=== PATIENT | female | born 1945 | race African-American/Black ===

== ENCOUNTER 2017-11-06 21:36 | Inpatient (IN) ==
[2017-11-06] MEDS ORDERED: methylPREDNISolone SOD SUC 40 MG/1 ML VIAL IV STA (22:26)
[2017-11-06] MEDS ORDERED: ALBUTEROL/IPRATROPIUM 3 ML NEB RESP TX STA (22:29)
[2017-11-06] MEDS ORDERED: methylPREDNISolone SOD SUC 125 MG/2 ML VIAL ONE (22:49)
[2017-11-06 22:59] LABS: Basophils % 0.5 % (0.0-0.8); Eosinophils # 0.2 10*3/uL (0.0-0.87); Eosinophils % 2.8 % (0.00-10.9); Hematocrit 40.3 VOL% (35.7-47.0); Hemoglobin 12.2 GM/DL (12.0-16.0); Immature Granulocytes % 0.3 %; Immature Granulocytes Absolute 0.02 #; Lymphocytes # 1.6 10*3/uL (1.4-4.0); Lymphocytes % 20.8 % (21.3-54.2); Mean Corpuscular HGB Conc 30.3 GM/DL (32-36); Mean Corpuscular Hemoglobin 29 PG (27-34); Mean Corpuscular Volume 94.4 FL (87-102); Mean Platelet Volume 13.8 FL (9.6-12.0); Monocytes # 0.6 10*3/uL (0.11-0.8); Monocytes % 7.3 % (1.7-12.7); Neutrophils # 5.4 10*3/uL (1.4-7.4); Neutrophils % 68.3 % (38.7-73.9); Platelet Count 116 T/CUMM (130-400); Red Blood Count 4.27 MC/CUMM (3.8-5.5); Red Cell Distribution Width 14.5 % (9.3-17.3); White Blood Count 7.9 T/CUMM (4-12)
[2017-11-06 23:22] LABS: Band Neutrophils 1 % (0-10); Eosinophils 4 % (0-10); Lymphocytes 26 % (20-55); Macrocytosis 1+; Platelet Estimate Decreased; Segmented Neutrophils 67 % (50-85); Total Cells Counted 100
[2017-11-06 23:44] LABS: Alanine Aminotransferase < 9 U/L (13-56); Albumin 3.2 G/DL (3.4-5.0); Alkaline Phosphatase 98 U/L (45-117); Aspartate Amino Transferase 13 U/L (0-37); Bilirubin,Total < 0.39 MG/DL (0.2-1.0); Blood Urea Nitrogen 50 MG/DL (7-18); Calcium 9.2 MG/DL (8.5-10.1); Glucose 199 MG/DL (74-106); Osmolality,Calculated 297.4 MOS/KG (273-304); Potassium 4.3 MMOL/L (3.5-5.1); Sodium 140 MMOL/L (136-145)
[2017-11-07] MEDS ORDERED: cefTRIAXone 1,000 MG in SODIUM CHLORIDE 0.9% 100 ML IV STA (01:15)
[2017-11-07] MEDS ORDERED: AZITHROMYCIN INJ 500 MG in SODIUM CHLORIDE 0.9% 250 ML IV STA (01:16)
[2017-11-07] MEDS ORDERED: cefTRIAXone 1,000 MG VIAL ONE (01:21)
[2017-11-07] MEDS ORDERED: AZITHROMYCIN 500 MG VIAL IV ONE (01:21)
[2017-11-07] MEDS ORDERED: ALBUTEROL 2.5 MG/3 ML NEB RESP TX PRN (04:00)
[2017-11-07] MEDS ORDERED: DEXTROSE 50% 25 GM/50 ML VIAL IV PRN (04:00)
[2017-11-07] MEDS ORDERED: ACETAMINOPHEN 325 MG TABLET PO PRN (04:00)
[2017-11-07] MEDS ORDERED: ONDANSETRON 4 MG/2 ML VIAL IV PRN (04:00)
[2017-11-07] MEDS ORDERED: GLUCAGON 1 MG VIAL IM PRN (04:00)
[2017-11-07] MEDS: LEVOFLOXACIN INJ 750 MG in PREMIX 1 EACH IV SCH (06:24)
[2017-11-07 07:14] LABS: Basophils % 0.2 % (0.0-0.8); Hematocrit 41.9 VOL% (35.7-47.0); Hemoglobin 12.9 GM/DL (12.0-16.0); Immature Granulocytes % 0.5 %; Immature Granulocytes Absolute 0.03 #; Lymphocytes # 0.8 10*3/uL (1.4-4.0); Lymphocytes % 13.3 % (21.3-54.2); Mean Corpuscular HGB Conc 30.8 GM/DL (32-36); Mean Corpuscular Hemoglobin 29 PG (27-34); Mean Corpuscular Volume 93.1 FL (87-102); Monocytes % 0.6 % (1.7-12.7); Neutrophils # 5.3 10*3/uL (1.4-7.4); Neutrophils % 85.4 % (38.7-73.9); Platelet Count 118 T/CUMM (130-400); Red Cell Distribution Width 14.4 % (9.3-17.3); White Blood Count 6.2 T/CUMM (4-12)
[2017-11-07 07:36] LABS: Eosinophils 1 % (0-10); Lymphocytes 18 % (20-55); Macrocytosis 1+; Platelet Estimate Normal; Segmented Neutrophils 81 % (50-85); Total Cells Counted 100
[2017-11-07] MEDS: ALBUTEROL/IPRATROPIUM 3 ML NEB RESP TX SCH ×3 (07:44→19:24)
[2017-11-07 07:52] LABS: Calcium 8.8 MG/DL (8.5-10.1); Osmolality,Calculated 304.3 MOS/KG (273-304); Potassium 4.9 MMOL/L (3.5-5.1)
[2017-11-07 09:03] LABS: Amorphous Crystals,Urine Occasional /HPF (Few); Apearance,Urine CLEAR (Clear); Bilirubin,Urine Negative (Negative); Blood, Urine Small mg/dL (Negative); Glucose,Urine (UA) Negative (Negative); Hyaline Casts,Urine 11 /LPF (0-3); Ketones,Urine Negative (Negative); Mucus,Urine Occasional /LPF (Occasional); Nitrite,Urine Negative (Negative); Protein,Urine 30 MG/DL; RBC,Urine 5 /HPF (0-4); Squamous Epithelial Cell,Urine Occasional /HPF (0-10); Urine Color Yellow (Yellow); Urine Specific Gravity 1.011 (1.001-1.035); Urine Urobilinogen < 2.0 EU/DL (0.2-1.0); WBC,Urine <1 /HPF (0-6)
[2017-11-07] MEDS: INSULIN LISPRO 100 UNIT/ML SUBCUT SCH ×4 (09:05→20:43)
[2017-11-07] MEDS: ENOXAPARIN 40 MG/0.4 ML SYRINGE SUBCUT SCH (09:06)
[2017-11-07] MEDS: PIPERACILLIN/TAZOBACTAM 3,375 MG in SODIUM CHLORIDE 0.9% 100 ML IV SCH ×2 (09:06→15:00)
[2017-11-07] MEDS: PANTOPRAZOLE 40 MG TABLET PO SCH (09:06)
[2017-11-07] MEDS: guaiFENesin/DM ER 600-30 MG TABLET PO SCH ×2 (09:06→20:42)
[2017-11-08] MEDS: PIPERACILLIN/TAZOBACTAM 3,375 MG in SODIUM CHLORIDE 0.9% 100 ML IV SCH ×4 (00:25→17:47)
[2017-11-08] MEDS: ALBUTEROL/IPRATROPIUM 3 ML NEB RESP TX SCH ×4 (00:30→19:14)
[2017-11-08] MEDS: ZALEPLON 5 MG CAPSULE PO PRN ×2 (01:48→21:19)
[2017-11-08 05:54] LABS: Basophils % 0.2 % (0.0-0.8); Eosinophils % 0.1 % (0.00-10.9); Hematocrit 38.3 VOL% (35.7-47.0); Hemoglobin 11.7 GM/DL (12.0-16.0); Immature Granulocytes % 0.7 %; Immature Granulocytes Absolute 0.06 #; Lymphocytes # 1.6 10*3/uL (1.4-4.0); Lymphocytes % 17.5 % (21.3-54.2); Mean Corpuscular HGB Conc 30.5 GM/DL (32-36); Mean Corpuscular Hemoglobin 28 PG (27-34); Mean Corpuscular Volume 92.3 FL (87-102); Mean Platelet Volume 13.6 FL (9.6-12.0); Monocytes # 0.9 10*3/uL (0.11-0.8); Monocytes % 9.8 % (1.7-12.7); Neutrophils # 6.4 10*3/uL (1.4-7.4); Neutrophils % 71.7 % (38.7-73.9); Platelet Count 112 T/CUMM (130-400); Red Blood Count 4.15 MC/CUMM (3.8-5.5); Red Cell Distribution Width 14.7 % (9.3-17.3)
[2017-11-08 06:20] LABS: Calcium 8.7 MG/DL (8.5-10.1); Osmolality,Calculated 302.1 MOS/KG (273-304); Potassium 4.1 MMOL/L (3.5-5.1)
[2017-11-08 06:30] LABS: Risk Ratio 3.73; Thyroid Stimulating Hormone 1.15 uIU/ml (0.358-3.74); VLDL CHOLESTEROL 18.2 MG/DL
[2017-11-08] MEDS ORDERED: ACETAMINOPHEN 325 MG TABLET PO PRN (09:12)
[2017-11-08] MEDS: INSULIN LISPRO 100 UNIT/ML SUBCUT SCH ×4 (09:28→21:19)
[2017-11-08] MEDS: guaiFENesin/DM ER 600-30 MG TABLET PO SCH ×2 (09:30→21:31)
[2017-11-08] MEDS: PANTOPRAZOLE 40 MG TABLET PO SCH (09:31)
[2017-11-08] MEDS: ENOXAPARIN 40 MG/0.4 ML SYRINGE SUBCUT SCH (10:43)
[2017-11-08] MEDS: LEVOFLOXACIN INJ 750 MG in PREMIX 1 EACH IV SCH (11:06)
[2017-11-08] MEDS: GABAPENTIN 400 MG CAPSULE PO SCH ×2 (14:49→21:19)
[2017-11-08] MEDS ORDERED: ZINC OXIDE PASTE 113 GM TUBE TOP PRN (15:58)
[2017-11-08] MEDS: FUROSEMIDE 40 MG TABLET PO SCH (21:18)
[2017-11-08] MEDS: FAMOTIDINE 20 MG TABLET PO SCH (21:18)
[2017-11-08] MEDS: tiZANidine 4 MG TABLET PO SCH (21:18)
[2017-11-08] MEDS: DABIGATRAN 150 MG CAPSULE PO SCH (21:18)
[2017-11-08] MEDS: BACLOFEN 10 MG TABLET PO SCH (21:19)
[2017-11-08] MEDS: DULoxetine 30 MG CAPSULE PO SCH (21:19)
[2017-11-08] MEDS: ATORVASTATIN 20 MG TABLET PO SCH (21:19)
[2017-11-09] MEDS: PIPERACILLIN/TAZOBACTAM 3,375 MG in SODIUM CHLORIDE 0.9% 100 ML IV SCH ×4 (00:21→18:22)
[2017-11-09] MEDS: ALBUTEROL/IPRATROPIUM 3 ML NEB RESP TX SCH ×4 (00:51→19:32)
[2017-11-09] MEDS: LEVOTHYROXINE 75 MCG TABLET PO SCH (06:12)
[2017-11-09 06:49] LABS: Basophils % 0.3 % (0.0-0.8); Eosinophils # 0.2 10*3/uL (0.0-0.87); Hematocrit 37.1 VOL% (35.7-47.0); Hemoglobin 11.5 GM/DL (12.0-16.0); Immature Granulocytes % 0.4 %; Immature Granulocytes Absolute 0.03 #; Lymphocytes # 1.6 10*3/uL (1.4-4.0); Lymphocytes % 22.2 % (21.3-54.2); Mean Corpuscular Hemoglobin 29 PG (27-34); Mean Corpuscular Volume 92.3 FL (87-102); Mean Platelet Volume 13.9 FL (9.6-12.0); Monocytes # 0.7 10*3/uL (0.11-0.8); Monocytes % 9.5 % (1.7-12.7); Neutrophils # 4.8 10*3/uL (1.4-7.4); Neutrophils % 65.6 % (38.7-73.9); Platelet Count 107 T/CUMM (130-400); Red Blood Count 4.02 MC/CUMM (3.8-5.5); Red Cell Distribution Width 14.9 % (9.3-17.3); White Blood Count 7.4 T/CUMM (4-12)
[2017-11-09 07:13] LABS: Potassium 4.6 MMOL/L (3.5-5.1)
[2017-11-09] MEDS: INSULIN LISPRO 100 UNIT/ML SUBCUT SCH ×4 (08:31→20:17)
[2017-11-09] MEDS ORDERED: INSULIN GLARGINE 100 UNIT/ML SUBCUT SCH (09:00)
[2017-11-09] MEDS: methylPREDNISolone SOD SUC 125 MG/2 ML VIAL IV SCH ×2 (09:06→17:05)
[2017-11-09] MEDS: LINACLOTIDE 145 MCG CAPSULE PO SCH (09:07)
[2017-11-09] MEDS: GABAPENTIN 400 MG CAPSULE PO SCH ×3 (09:07→20:17)
[2017-11-09] MEDS: MAGNESIUM OXIDE 400 MG TABLET PO SCH (09:08)
[2017-11-09] MEDS: BACLOFEN 10 MG TABLET PO SCH ×2 (09:08→20:16)
[2017-11-09] MEDS: ISOSORBIDE MONONITRATE 30 MG TABLET PO SCH (09:08)
[2017-11-09] MEDS: LOSARTAN 50 MG TABLET PO SCH (09:09)
[2017-11-09] MEDS: FAMOTIDINE 20 MG TABLET PO SCH ×2 (09:09→20:17)
[2017-11-09] MEDS: DABIGATRAN 150 MG CAPSULE PO SCH ×2 (09:09→20:16)
[2017-11-09] MEDS: guaiFENesin/DM ER 600-30 MG TABLET PO SCH ×2 (09:10→20:17)
[2017-11-09] MEDS: THEOPHYLLINE ER (24 HR) 400 MG CAPSULE PO SCH (09:10)
[2017-11-09] MEDS: tiZANidine 4 MG TABLET PO SCH ×2 (09:10→20:17)
[2017-11-09] MEDS: DILTIAZEM CD 120 MG CAPSULE PO SCH (09:10)
[2017-11-09] MEDS: DOCUSATE SODIUM 100 MG CAPSULE PO SCH (09:11)
[2017-11-09] MEDS: DULoxetine 30 MG CAPSULE PO SCH ×2 (09:11→20:17)
[2017-11-09] MEDS: FUROSEMIDE 40 MG TABLET PO SCH ×2 (09:11→20:16)
[2017-11-09] MEDS: PANTOPRAZOLE 40 MG TABLET PO SCH (09:11)
[2017-11-09] MEDS: ASPIRIN CHEW 81 MG TABLET PO SCH (09:11)
[2017-11-09] MEDS: POLYETHYLENE GLYCOL POWDER 17 GM PACK PO SCH (09:19)
[2017-11-09] MEDS: LEVOFLOXACIN INJ 750 MG in PREMIX 1 EACH IV SCH (11:24)
[2017-11-09] MEDS: ZALEPLON 5 MG CAPSULE PO PRN (20:16)
[2017-11-09] MEDS: ATORVASTATIN 20 MG TABLET PO SCH (20:17)
[2017-11-10] MEDS: methylPREDNISolone SOD SUC 125 MG/2 ML VIAL IV SCH ×4 (00:10→20:37)
[2017-11-10] MEDS: PIPERACILLIN/TAZOBACTAM 3,375 MG in SODIUM CHLORIDE 0.9% 100 ML IV SCH ×3 (00:11→11:15)
[2017-11-10] MEDS: ALBUTEROL/IPRATROPIUM 3 ML NEB RESP TX SCH ×4 (00:36→19:40)
[2017-11-10 06:49] LABS: Hematocrit 38.7 VOL% (35.7-47.0); Hemoglobin 11.9 GM/DL (12.0-16.0); Immature Granulocytes % 0.5 %; Immature Granulocytes Absolute 0.03 #; Lymphocytes # 0.7 10*3/uL (1.4-4.0); Lymphocytes % 11.7 % (21.3-54.2); Mean Corpuscular HGB Conc 30.7 GM/DL (32-36); Mean Corpuscular Hemoglobin 28 PG (27-34); Mean Corpuscular Volume 91.3 FL (87-102); Mean Platelet Volume 13.7 FL (9.6-12.0); Monocytes # 0.1 10*3/uL (0.11-0.8); Monocytes % 1.4 % (1.7-12.7); Neutrophils # 5.5 10*3/uL (1.4-7.4); Neutrophils % 86.4 % (38.7-73.9); Platelet Count 107 T/CUMM (130-400); Red Blood Count 4.24 MC/CUMM (3.8-5.5); Red Cell Distribution Width 14.5 % (9.3-17.3); White Blood Count 6.3 T/CUMM (4-12)
[2017-11-10 07:34] LABS: Alanine Aminotransferase 10 U/L (13-56); Albumin 3.3 G/DL (3.4-5.0); Alkaline Phosphatase 82 U/L (45-117); Aspartate Amino Transferase 6 U/L (0-37); Bilirubin,Total < 0.39 MG/DL (0.2-1.0); Blood Urea Nitrogen 48 MG/DL (7-18); Calcium 8.9 MG/DL (8.5-10.1); Glucose 304 MG/DL (74-106); Osmolality,Calculated 300.5 MOS/KG (273-304); Potassium 4.9 MMOL/L (3.5-5.1); Sodium 139 MMOL/L (136-145); Total Protein 6.7 G/DL (6.4-8.3)
[2017-11-10] MEDS: INSULIN GLARGINE 100 UNIT/ML SUBCUT SCH (09:11)
[2017-11-10] MEDS: INSULIN LISPRO 100 UNIT/ML SUBCUT SCH ×4 (09:11→20:39)
[2017-11-10] MEDS: DULoxetine 30 MG CAPSULE PO SCH ×2 (09:13→20:39)
[2017-11-10] MEDS: LEVOTHYROXINE 75 MCG TABLET PO SCH (09:13)
[2017-11-10] MEDS: FUROSEMIDE 40 MG TABLET PO SCH ×2 (09:13→20:39)
[2017-11-10] MEDS: FAMOTIDINE 20 MG TABLET PO SCH ×2 (09:13→20:37)
[2017-11-10] MEDS: DOCUSATE SODIUM 100 MG CAPSULE PO SCH (09:13)
[2017-11-10] MEDS: GABAPENTIN 400 MG CAPSULE PO SCH ×3 (09:13→20:37)
[2017-11-10] MEDS: LOSARTAN 50 MG TABLET PO SCH (09:13)
[2017-11-10] MEDS: DILTIAZEM CD 120 MG CAPSULE PO SCH (09:14)
[2017-11-10] MEDS: PANTOPRAZOLE 40 MG TABLET PO SCH (09:14)
[2017-11-10] MEDS: tiZANidine 4 MG TABLET PO SCH ×2 (09:14→20:38)
[2017-11-10] MEDS: DABIGATRAN 150 MG CAPSULE PO SCH ×2 (09:14→20:39)
[2017-11-10] MEDS: THEOPHYLLINE ER (24 HR) 400 MG CAPSULE PO SCH (09:14)
[2017-11-10] MEDS: guaiFENesin/DM ER 600-30 MG TABLET PO SCH ×2 (09:14→20:39)
[2017-11-10] MEDS: MAGNESIUM OXIDE 400 MG TABLET PO SCH (09:14)
[2017-11-10] MEDS: BACLOFEN 10 MG TABLET PO SCH ×2 (09:14→20:38)
[2017-11-10] MEDS: ISOSORBIDE MONONITRATE 30 MG TABLET PO SCH (09:14)
[2017-11-10] MEDS: ASPIRIN CHEW 81 MG TABLET PO SCH (09:15)
[2017-11-10] MEDS: LINACLOTIDE 145 MCG CAPSULE PO SCH (09:15)
[2017-11-10] MEDS: POLYETHYLENE GLYCOL POWDER 17 GM PACK PO SCH (09:15)
[2017-11-10] MEDS: LEVOFLOXACIN INJ 750 MG in PREMIX 1 EACH IV SCH (09:38)
[2017-11-10] MEDS: LINEZOLID INJ 600 MG in PREMIX 1 EACH IV SCH (16:17)
[2017-11-10] MEDS: CIPROFLOXACIN 250 MG TABLET PO SCH (20:37)
[2017-11-10] MEDS: ATORVASTATIN 20 MG TABLET PO SCH (20:39)
[2017-11-10] MEDS: ZALEPLON 5 MG CAPSULE PO PRN (22:50)
[2017-11-11] MEDS: ALBUTEROL/IPRATROPIUM 3 ML NEB RESP TX SCH ×2 (01:04→07:06)
[2017-11-11] MEDS: LINEZOLID INJ 600 MG in PREMIX 1 EACH IV SCH (04:40)
[2017-11-11] MEDS: LEVOTHYROXINE 75 MCG TABLET PO SCH (06:24)
[2017-11-11] MEDS: methylPREDNISolone SOD SUC 125 MG/2 ML VIAL IV SCH (09:09)
[2017-11-11] MEDS: INSULIN LISPRO 100 UNIT/ML SUBCUT SCH ×2 (09:09→12:29)
[2017-11-11] MEDS: INSULIN GLARGINE 100 UNIT/ML SUBCUT SCH (09:09)
[2017-11-11] MEDS: THEOPHYLLINE ER (24 HR) 400 MG CAPSULE PO SCH (09:13)
[2017-11-11] MEDS: DULoxetine 30 MG CAPSULE PO SCH (09:13)
[2017-11-11] MEDS: MAGNESIUM OXIDE 400 MG TABLET PO SCH (09:14)
[2017-11-11] MEDS: BACLOFEN 10 MG TABLET PO SCH (09:14)
[2017-11-11] MEDS: tiZANidine 4 MG TABLET PO SCH (09:14)
[2017-11-11] MEDS: ISOSORBIDE MONONITRATE 30 MG TABLET PO SCH (09:14)
[2017-11-11] MEDS: FUROSEMIDE 40 MG TABLET PO SCH (09:14)
[2017-11-11] MEDS: CIPROFLOXACIN 250 MG TABLET PO SCH (09:15)
[2017-11-11] MEDS: guaiFENesin/DM ER 600-30 MG TABLET PO SCH (09:15)
[2017-11-11] MEDS: PANTOPRAZOLE 40 MG TABLET PO SCH (09:15)
[2017-11-11] MEDS: FAMOTIDINE 20 MG TABLET PO SCH (09:15)
[2017-11-11] MEDS: GABAPENTIN 400 MG CAPSULE PO SCH (09:15)
[2017-11-11] MEDS: DABIGATRAN 150 MG CAPSULE PO SCH (09:16)
[2017-11-11] MEDS: ASPIRIN CHEW 81 MG TABLET PO SCH (09:16)
[2017-11-11] MEDS: DILTIAZEM CD 120 MG CAPSULE PO SCH (09:16)
[2017-11-11] MEDS: LOSARTAN 50 MG TABLET PO SCH (09:16)
[2017-11-11] MEDS: LINACLOTIDE 145 MCG CAPSULE PO SCH (09:17)
[2017-11-11] MEDS: DOCUSATE SODIUM 100 MG CAPSULE PO SCH (09:17)
[2017-11-11] MEDS: POLYETHYLENE GLYCOL POWDER 17 GM PACK PO SCH (09:17)
[2017-11-11] MEDS ORDERED: NITROGLYCERIN SL 0.4 MG TABLET SL ONE (11:08)
[2017-11-11 11:31] VITALS: BP 116/60
[2017-11-11] MEDS ORDERED: LINEZOLID 600 MG TABLET PO SCH (21:00)
== END 2017-11-11 14:07 | DRG 194 ==
LOC: EDBD → EDUNIT# → N.ED 21:36 → SUATTDRO 11-07 03:51 → N.EDINP 11-07 03:51 → N.5E 11-07 04:22
PROVIDERS: ADMIT Internal Medicine; ATTEND Internal Medicine

== ENCOUNTER 2018-11-08 14:30 | Inpatient (IN) ==
[2018-11-08] MEDS ORDERED: SODIUM CHLORIDE 0.9% 1,000 ML IV STA ×2 (15:03→15:11)
[2018-11-08] MEDS ORDERED: ONDANSETRON 4 MG/2 ML VIAL IV STA (15:03)
[2018-11-08] MEDS ORDERED: PANTOPRAZOLE 40 MG VIAL IV STA (15:03)
[2018-11-08 16:08] LABS: INR 1.2
[2018-11-08 16:19] LABS: Partial Thromboplastin Time 50.3 SECS (0-40)
[2018-11-08 16:28] LABS: Albumin 3.4 G/DL (3.4-5.0); Bilirubin,Total 0.7 MG/DL (0.2-1.0); Calcium 8.6 MG/DL (8.5-10.1); Osmolality,Calculated 302.1 MOS/KG (273-304); Potassium 5.7 MMOL/L (3.5-5.1); Total Protein 7.5 G/DL (6.4-8.3)
[2018-11-08 16:29] LABS: Basophils # 0.1 10*3/uL (0.0-0.2); Basophils % 0.6 % (0.0-0.8); Eosinophils # 0.3 10*3/uL (0.0-0.87); Eosinophils % 3.1 % (0.00-10.9); Hematocrit 33.4 VOL% (35.7-47.0); Hemoglobin 9.4 GM/DL (12.0-16.0); Immature Granulocytes % 0.4 %; Immature Granulocytes Absolute 0.03 #; Lymphocytes # 1.2 10*3/uL (1.4-4.0); Lymphocytes % 14.2 % (21.3-54.2); Mean Corpuscular HGB Conc 28.1 GM/DL (32-36); Mean Corpuscular Hemoglobin 27 PG (27-34); Mean Corpuscular Volume 95.4 FL (87-102); Mean Platelet Volume 13.5 FL (9.6-12.0); Monocytes # 0.6 10*3/uL (0.11-0.8); Monocytes % 7.4 % (1.7-12.7); Neutrophils # 6.1 10*3/uL (1.4-7.4); Neutrophils % 74.3 % (38.7-73.9); Platelet Count 112 T/CUMM (130-400); Red Cell Distribution Width 16.1 % (9.3-17.3); White Blood Count 8.3 T/CUMM (4-12)
[2018-11-08] MEDS ORDERED: AMPICILLIN/SULBACTAM 3,000 MG in SODIUM CHLORIDE 0.9% 100 ML IV STA (16:52)
[2018-11-08] MEDS ORDERED: ALBUTEROL NEB SOLN 5 MG/ML 20 ML/BOTTLE CONT NEB STA (16:53)
[2018-11-08] MEDS ORDERED: CALCIUM CHLORIDE 1,000 MG/10 ML SYRINGE IV STA (16:53)
[2018-11-08] MEDS ORDERED: ONDANSETRON 4 MG/2 ML VIAL IV PRN (17:37)
[2018-11-08] MEDS ORDERED: LACTULOSE 20 GM/30 ML UDCUP PO PRN (17:37)
[2018-11-08] MEDS ORDERED: DEXTROSE 50% 25 GM/50 ML SYRINGE IV PRN (17:37)
[2018-11-08] MEDS ORDERED: GLUCAGON 1 MG VIAL IM PRN (17:37)
[2018-11-08] MEDS ORDERED: ALBUTEROL/IPRATROPIUM 3 ML NEB RESP TX PRN (17:43)
[2018-11-08] MEDS ORDERED: hydrOXYzine HCL 25 MG TABLET PO PRN (17:46)
[2018-11-08] MEDS ORDERED: SODIUM CHLORIDE 0.9% 1,000 ML IV SCH (18:00)
[2018-11-08] MEDS: ALBUTEROL 2.5 MG/3 ML NEB RESP TX SCH (20:18)
[2018-11-08] MEDS ORDERED: cefTRIAXone 1,000 MG in SYRINGE 1 EACH IV SCH (21:00)
[2018-11-08] MEDS ORDERED: FUROSEMIDE 40 MG TABLET PO SCH (21:00)
[2018-11-08] MEDS: FUROSEMIDE 40 MG TABLET PO SCH (22:31)
[2018-11-08] MEDS: guaiFENesin/DM ER 600-30 MG TABLET PO SCH (22:31)
[2018-11-08] MEDS: ATORVASTATIN 20 MG TABLET PO SCH (22:31)
[2018-11-08] MEDS: hydrALAZINE 25 MG TABLET PO SCH (22:31)
[2018-11-08] MEDS: BENZONATATE 100 MG CAPSULE PO SCH (22:32)
[2018-11-08] MEDS: MENTHOL/ZINC OXIDE OINT 71 GM JAR TOP SCH (22:32)
[2018-11-08] MEDS: GABAPENTIN 300 MG CAPSULE PO SCH (22:32)
[2018-11-08] MEDS: NYSTATIN POWDER 15 GM BOTTLE TOP SCH (22:32)
[2018-11-08] MEDS: AZITHROMYCIN INJ 500 MG in SODIUM CHLORIDE 0.9% 250 ML IV SCH (23:23)
[2018-11-08] MEDS: INSULIN REGULAR 100 UNIT/ML SUBCUT SCH (23:28)
[2018-11-09] MEDS: ALBUTEROL 2.5 MG/3 ML NEB RESP TX SCH ×4 (00:05→20:26)
[2018-11-09] MEDS: LEVOTHYROXINE 100 MCG TABLET PO SCH (06:12)
[2018-11-09 06:18] LABS: Osmolality,Calculated 308.6 MOS/KG (273-304)
[2018-11-09 06:25] LABS: Potassium 6.1 MMOL/L (3.5-5.1)
[2018-11-09] MEDS ORDERED: SODIUM POLYSTYRENE SULFATE 15 GM/60 ML BOTTLE PO ONE ×2 (06:29→12:34)
[2018-11-09] MEDS ORDERED: FUROSEMIDE 20 MG/2 ML VIAL IV ONE (06:29)
[2018-11-09 06:33] LABS: Basophils % 0.5 % (0.0-0.8); Eosinophils # 0.2 10*3/uL (0.0-0.87); Eosinophils % 2.5 % (0.00-10.9); Hematocrit 30.1 VOL% (35.7-47.0); Hemoglobin 8.5 GM/DL (12.0-16.0); Immature Granulocytes % 0.4 %; Immature Granulocytes Absolute 0.03 #; Lymphocytes # 1.3 10*3/uL (1.4-4.0); Lymphocytes % 16.9 % (21.3-54.2); Mean Corpuscular HGB Conc 28.2 GM/DL (32-36); Mean Corpuscular Hemoglobin 27 PG (27-34); Mean Corpuscular Volume 95.3 FL (87-102); Mean Platelet Volume 14.2 FL (9.6-12.0); Monocytes # 0.8 10*3/uL (0.11-0.8); Monocytes % 10.2 % (1.7-12.7); Neutrophils # 5.4 10*3/uL (1.4-7.4); Neutrophils % 69.5 % (38.7-73.9); Platelet Count 103 T/CUMM (130-400); Red Blood Count 3.16 MC/CUMM (3.8-5.5); Red Cell Distribution Width 16.2 % (9.3-17.3); White Blood Count 7.7 T/CUMM (4-12)
[2018-11-09 06:34] LABS: Hypochromasia 1+; Platelet Estimate Decreased
[2018-11-09] MEDS: INSULIN REGULAR 100 UNIT/ML SUBCUT SCH ×4 (08:20→21:19)
[2018-11-09] MEDS ORDERED: LACTULOSE 20 GM/30 ML UDCUP PO SCH (09:00)
[2018-11-09] MEDS ORDERED: BISACODYL 5 MG TABLET PO SCH (09:00)
[2018-11-09] MEDS: DULoxetine 30 MG CAPSULE PO SCH (09:35)
[2018-11-09] MEDS: BENZONATATE 100 MG CAPSULE PO SCH ×3 (09:35→21:49)
[2018-11-09] MEDS: FUROSEMIDE 40 MG TABLET PO SCH ×2 (09:36→15:01)
[2018-11-09] MEDS: MONTELUKAST 10 MG TABLET PO SCH (09:36)
[2018-11-09] MEDS: DOCUSATE SODIUM 100 MG CAPSULE PO SCH (09:36)
[2018-11-09] MEDS: guaiFENesin/DM ER 600-30 MG TABLET PO SCH ×2 (09:36→21:48)
[2018-11-09] MEDS: GABAPENTIN 300 MG CAPSULE PO SCH ×3 (09:36→21:49)
[2018-11-09] MEDS: PANTOPRAZOLE 40 MG TABLET PO SCH (09:36)
[2018-11-09] MEDS: hydrALAZINE 25 MG TABLET PO SCH ×3 (09:37→21:49)
[2018-11-09] MEDS: NYSTATIN POWDER 15 GM BOTTLE TOP SCH ×2 (09:37→21:51)
[2018-11-09] MEDS: ASPIRIN CHEW 81 MG TABLET PO SCH (09:37)
[2018-11-09] MEDS: MENTHOL/ZINC OXIDE OINT 71 GM JAR TOP SCH ×2 (09:37→21:51)
[2018-11-09] MEDS: DILTIAZEM CD 120 MG CAPSULE PO SCH (09:37)
[2018-11-09] MEDS: ISOSORBIDE MONONITRATE 30 MG TABLET PO SCH (09:37)
[2018-11-09] MEDS: LINACLOTIDE 145 MCG CAPSULE PO SCH (09:38)
[2018-11-09] MEDS: INSULIN GLARGINE 100 UNIT/ML SUBCUT SCH (09:38)
[2018-11-09] MEDS: PIPERACILLIN/TAZOBACTAM 3,375 MG in SODIUM CHLORIDE 0.9% 100 ML IV SCH ×2 (09:39→16:48)
[2018-11-09] MEDS: POLYETHYLENE GLYCOL POWDER 17 GM PACK PO SCH (09:39)
[2018-11-09] MEDS ORDERED: NEOMYCIN/POLYMYXIN IRRIG SOLN 1 ML AMP BLADDERIRR ONE (11:07)
[2018-11-09] MEDS: traMADol 50 MG TABLET PO PRN (15:01)
[2018-11-09 19:29] LABS: Calcium 8.6 MG/DL (8.5-10.1); Osmolality,Calculated 305.8 MOS/KG (273-304); Potassium 5.2 MMOL/L (3.5-5.1)
[2018-11-09] MEDS: ATORVASTATIN 20 MG TABLET PO SCH (21:48)
[2018-11-09] MEDS: AZITHROMYCIN INJ 500 MG in SODIUM CHLORIDE 0.9% 250 ML IV SCH (21:49)
[2018-11-10] MEDS: ALBUTEROL 2.5 MG/3 ML NEB RESP TX SCH ×4 (00:49→19:24)
[2018-11-10] MEDS: traMADol 50 MG TABLET PO PRN ×2 (01:05→22:20)
[2018-11-10] MEDS: PIPERACILLIN/TAZOBACTAM 3,375 MG in SODIUM CHLORIDE 0.9% 100 ML IV SCH ×3 (01:07→22:21)
[2018-11-10 05:28] LABS: Calcium 8.7 MG/DL (8.5-10.1); Osmolality,Calculated 304.7 MOS/KG (273-304); Potassium 4.5 MMOL/L (3.5-5.1)
[2018-11-10 05:40] LABS: Basophils % 0.4 % (0.0-0.8); Eosinophils # 0.3 10*3/uL (0.0-0.87); Eosinophils % 3.4 % (0.00-10.9); Hematocrit 29.2 VOL% (35.7-47.0); Immature Granulocytes % 0.3 %; Immature Granulocytes Absolute 0.02 #; Lymphocytes # 1.7 10*3/uL (1.4-4.0); Lymphocytes % 21.3 % (21.3-54.2); Mean Corpuscular HGB Conc 28.4 GM/DL (32-36); Mean Corpuscular Hemoglobin 27 PG (27-34); Mean Corpuscular Volume 93.9 FL (87-102); Mean Platelet Volume 13.4 FL (9.6-12.0); Monocytes # 0.8 10*3/uL (0.11-0.8); Neutrophils # 5.1 10*3/uL (1.4-7.4); Neutrophils % 64.6 % (38.7-73.9); Platelet Count 100 T/CUMM (130-400); Red Blood Count 3.11 MC/CUMM (3.8-5.5); Red Cell Distribution Width 16.2 % (9.3-17.3); White Blood Count 7.9 T/CUMM (4-12)
[2018-11-10 05:41] LABS: Hemoglobin 8.3 GM/DL (12.0-16.0)
[2018-11-10 05:45] LABS: Hypochromasia 1+; Platelet Estimate Decreased
[2018-11-10] MEDS: LEVOTHYROXINE 100 MCG TABLET PO SCH (06:17)
[2018-11-10] MEDS ORDERED: SODIUM CHLORIDE 0.9% 1,000 ML IV PRN (08:43)
[2018-11-10] MEDS ORDERED: FUROSEMIDE 40 MG/4 ML VIAL IV ONE (08:44)
[2018-11-10] MEDS: INSULIN GLARGINE 100 UNIT/ML SUBCUT SCH (09:13)
[2018-11-10] MEDS: ASPIRIN CHEW 81 MG TABLET PO SCH (09:15)
[2018-11-10] MEDS: GABAPENTIN 300 MG CAPSULE PO SCH ×3 (09:15→22:21)
[2018-11-10] MEDS: PANTOPRAZOLE 40 MG TABLET PO SCH (09:15)
[2018-11-10] MEDS: ISOSORBIDE MONONITRATE 30 MG TABLET PO SCH (09:15)
[2018-11-10] MEDS: hydrALAZINE 25 MG TABLET PO SCH ×3 (09:15→22:21)
[2018-11-10] MEDS: FUROSEMIDE 40 MG TABLET PO SCH ×2 (09:15→16:59)
[2018-11-10] MEDS: DABIGATRAN 150 MG CAPSULE PO SCH ×2 (09:15→22:21)
[2018-11-10] MEDS: DILTIAZEM CD 120 MG CAPSULE PO SCH (09:16)
[2018-11-10] MEDS: LINACLOTIDE 145 MCG CAPSULE PO SCH (09:16)
[2018-11-10] MEDS: POLYETHYLENE GLYCOL POWDER 17 GM PACK PO SCH (09:17)
[2018-11-10] MEDS: DULoxetine 30 MG CAPSULE PO SCH (09:17)
[2018-11-10] MEDS: guaiFENesin/DM ER 600-30 MG TABLET PO SCH ×2 (09:17→22:21)
[2018-11-10] MEDS: DOCUSATE SODIUM 100 MG CAPSULE PO SCH (09:17)
[2018-11-10] MEDS: BENZONATATE 100 MG CAPSULE PO SCH ×3 (09:17→22:21)
[2018-11-10] MEDS: MONTELUKAST 10 MG TABLET PO SCH (09:17)
[2018-11-10] MEDS: NYSTATIN POWDER 15 GM BOTTLE TOP SCH ×2 (11:09→22:28)
[2018-11-10] MEDS: MENTHOL/ZINC OXIDE OINT 71 GM JAR TOP SCH ×2 (11:09→22:28)
[2018-11-10] MEDS: INSULIN REGULAR 100 UNIT/ML SUBCUT SCH ×4 (11:11→22:22)
[2018-11-10 20:30] LABS: Hematocrit 32.4 VOL% (35.7-47.0); Hemoglobin 9.5 GM/DL (12.0-16.0)
[2018-11-10] MEDS ORDERED: AZITHROMYCIN 250 MG TABLET PO SCH (21:00)
[2018-11-10] MEDS: ATORVASTATIN 20 MG TABLET PO SCH (22:21)
[2018-11-11] MEDS: ALBUTEROL 2.5 MG/3 ML NEB RESP TX SCH ×2 (01:54→07:50)
[2018-11-11 04:40] LABS: Basophils % 0.3 % (0.0-0.8); Eosinophils # 0.4 10*3/uL (0.0-0.87); Eosinophils % 4.7 % (0.00-10.9); Hematocrit 32.2 VOL% (35.7-47.0); Hemoglobin 9.5 GM/DL (12.0-16.0); Immature Granulocytes % 0.3 %; Immature Granulocytes Absolute 0.02 #; Lymphocytes # 1.6 10*3/uL (1.4-4.0); Lymphocytes % 20.1 % (21.3-54.2); Mean Corpuscular HGB Conc 29.5 GM/DL (32-36); Mean Corpuscular Hemoglobin 27 PG (27-34); Mean Corpuscular Volume 92.5 FL (87-102); Mean Platelet Volume 14.1 FL (9.6-12.0); Monocytes # 0.8 10*3/uL (0.11-0.8); Monocytes % 10.3 % (1.7-12.7); Neutrophils % 64.3 % (38.7-73.9); Platelet Count 106 T/CUMM (130-400); Red Blood Count 3.48 MC/CUMM (3.8-5.5); Red Cell Distribution Width 16.2 % (9.3-17.3); White Blood Count 7.8 T/CUMM (4-12)
[2018-11-11 04:57] LABS: Calcium 8.7 MG/DL (8.5-10.1); Osmolality,Calculated 301.7 MOS/KG (273-304); Potassium 4.7 MMOL/L (3.5-5.1)
[2018-11-11] MEDS: PIPERACILLIN/TAZOBACTAM 3,375 MG in SODIUM CHLORIDE 0.9% 100 ML IV SCH ×2 (06:47→14:19)
[2018-11-11] MEDS: LEVOTHYROXINE 100 MCG TABLET PO SCH (06:48)
[2018-11-11] MEDS: traMADol 50 MG TABLET PO PRN (06:52)
[2018-11-11] MEDS: POLYETHYLENE GLYCOL POWDER 17 GM PACK PO SCH (10:19)
[2018-11-11] MEDS: DABIGATRAN 150 MG CAPSULE PO SCH (10:19)
[2018-11-11] MEDS: DILTIAZEM CD 120 MG CAPSULE PO SCH (10:20)
[2018-11-11] MEDS: GABAPENTIN 300 MG CAPSULE PO SCH (10:24)
[2018-11-11] MEDS: DULoxetine 30 MG CAPSULE PO SCH (10:25)
[2018-11-11] MEDS: ASPIRIN CHEW 81 MG TABLET PO SCH (10:25)
[2018-11-11] MEDS: FUROSEMIDE 40 MG TABLET PO SCH (10:25)
[2018-11-11] MEDS: hydrALAZINE 25 MG TABLET PO SCH (10:26)
[2018-11-11] MEDS: MONTELUKAST 10 MG TABLET PO SCH (10:26)
[2018-11-11] MEDS: PANTOPRAZOLE 40 MG TABLET PO SCH (10:26)
[2018-11-11] MEDS: ISOSORBIDE MONONITRATE 30 MG TABLET PO SCH (10:26)
[2018-11-11] MEDS: DOCUSATE SODIUM 100 MG CAPSULE PO SCH (10:26)
[2018-11-11] MEDS: BENZONATATE 100 MG CAPSULE PO SCH (10:26)
[2018-11-11] MEDS: guaiFENesin/DM ER 600-30 MG TABLET PO SCH (10:26)
[2018-11-11] MEDS: INSULIN GLARGINE 100 UNIT/ML SUBCUT SCH (10:27)
[2018-11-11] MEDS: LINACLOTIDE 145 MCG CAPSULE PO SCH (10:28)
[2018-11-11] MEDS: MENTHOL/ZINC OXIDE OINT 71 GM JAR TOP SCH (10:33)
[2018-11-11] MEDS: NYSTATIN POWDER 15 GM BOTTLE TOP SCH (10:33)
[2018-11-11] MEDS: INSULIN REGULAR 100 UNIT/ML SUBCUT SCH ×2 (10:36→12:05)
[2018-11-11 12:18] VITALS: BP 146/80
== END 2018-11-11 15:01 | DRG 150 ==
LOC: EDBD → EDUNIT# → N.ED 14:30 → N.EDINP 17:37 → N.2E 19:57
PROVIDERS: ADMIT Internal Medicine; ATTEND Internal Medicine

== ENCOUNTER 2019-01-24 08:01 | Inpatient (IN) ==
[2019-01-24] MEDS ORDERED: ALBUTEROL 2.5 MG/3 ML NEB RESP TX PRN (10:09)
[2019-01-24] MEDS ORDERED: DOCUSATE SODIUM 100 MG CAPSULE PO PRN (10:09)
[2019-01-24] MEDS ORDERED: ALBUTEROL/IPRATROPIUM 3 ML NEB RESP TX PRN (10:09)
[2019-01-24] MEDS ORDERED: ONDANSETRON 4 MG/2 ML VIAL IV PRN (10:09)
[2019-01-24 10:11] LABS: Allen Test Positive
[2019-01-24] MEDS ORDERED: DEXTROSE 50% 25 GM/50 ML SYRINGE IV PRN (10:16)
[2019-01-24] MEDS ORDERED: GLUCAGON 1 MG VIAL IM PRN (10:16)
[2019-01-24] MEDS ORDERED: methylPREDNISolone SOD SUC 40 MG/1 ML VIAL IV SCH (10:30)
[2019-01-24 10:48] LABS: ABG Base Excess 4.4 MMOL/L (-2.5-2.5); ABG HCO3 28.3 MMOL/L (20-26); ABG Oxygen Saturation 92.5 % (95-100); ABG PO2 70.6 MM HG (80-95); ABG TCO2 35.8 MMOL/L (23-27)
[2019-01-24 10:50] LABS: ABG PH 7.124 (7.35-7.45)
[2019-01-24] MEDS ORDERED: methylPREDNISolone SOD SUC 40 MG/1 ML VIAL ONE (10:55)
[2019-01-24] MEDS ORDERED: PANTOPRAZOLE 40 MG TABLET PO ONE (10:55)
[2019-01-24 11:30] LABS: Albumin 3.3 G/DL (3.4-5.0); Bilirubin,Total 0.4 MG/DL (0.2-1.0); Calcium 9.1 MG/DL (8.5-10.1); Osmolality,Calculated 305.5 MOS/KG (273-304); Risk Ratio 2.39; Thyroid Stimulating Hormone 0.478 uIU/ml (0.358-3.74); Total Protein 6.9 G/DL (6.4-8.3); VLDL CHOLESTEROL 21.4 MG/DL
[2019-01-24 11:34] LABS: Apearance,Urine CLOUDY (Clear); Bilirubin,Urine Negative (Negative); Blood, Urine Large mg/dL (Negative); Glucose,Urine (UA) 50 mg/dL (Negative); Ketones,Urine 5 mg/dL (Negative); Nitrite,Urine Negative (Negative); Protein,Urine 100 MG/DL; Urine Color Yellow (Yellow); Urine Urobilinogen < 2.0 EU/DL (0.2-1.0)
[2019-01-24] MEDS ORDERED: PANTOPRAZOLE 40 MG VIAL IV ONE (11:36)
[2019-01-24 11:40] LABS: Bacteria,Urine Many /HPF (Few); RBC,Urine TNTC /HPF (0-4); Squamous Epithelial Cell,Urine Many /HPF (0-10); WBC,Urine TNTC /HPF (0-6)
[2019-01-24] MEDS: PANTOPRAZOLE 40 MG VIAL IV SCH (12:10)
[2019-01-24] MEDS: LEVOFLOXACIN INJ 750 MG in PREMIX 1 EACH IV SCH (12:12)
[2019-01-24] MEDS: SODIUM CHLORIDE 0.45% 1,000 ML IV SCH ×2 (12:12→22:30)
[2019-01-24 12:42] LABS: Basophils % 0.3 % (0.0-0.8); Eosinophils # 0.1 10*3/uL (0.0-0.87); Eosinophils % 1.3 % (0.00-10.9); Hematocrit 33.7 VOL% (35.7-47.0); Immature Granulocytes % 0.8 %; Immature Granulocytes Absolute 0.07 #; Lymphocytes # 0.8 10*3/uL (1.4-4.0); Lymphocytes % 8.6 % (21.3-54.2); Mean Corpuscular HGB Conc 26.4 GM/DL (32-36); Mean Corpuscular Volume 99.7 FL (87-102); Monocytes % 8.8 % (1.7-12.7); Neutrophils % 80.2 % (38.7-73.9); Red Blood Count 3.38 MC/CUMM (3.8-5.5); Red Cell Distribution Width 15.8 % (9.3-17.3); White Blood Count 9.2 T/CUMM (4-12)
[2019-01-24 12:47] LABS: Hemoglobin 8.9 GM/DL (12.0-16.0); Platelet Count 85 T/CUMM (130-400)
[2019-01-24] MEDS: INSULIN LISPRO 100 UNIT/ML SUBCUT SCH ×3 (13:30→23:53)
[2019-01-24] MEDS ORDERED: FUROSEMIDE 40 MG/4 ML VIAL IV ONE ×2 (13:39→14:31)
[2019-01-24] MEDS: PIPERACILLIN/TAZOBACTAM 3,375 MG in SODIUM CHLORIDE 0.9% 100 ML IV SCH ×2 (13:46→20:59)
[2019-01-24 15:08] LABS: ABG Base Excess 3.4 MMOL/L (-2.5-2.5); ABG HCO3 27.3 MMOL/L (20-26); ABG Oxygen Saturation 90.8 % (95-100); ABG PO2 66.6 MM HG (80-95); ABG TCO2 33.9 MMOL/L (23-27); Allen Test Positive; Pt O2 Delivery Device BIPAP
[2019-01-24 15:11] LABS: ABG PH 7.146 (7.35-7.45)
[2019-01-24] MEDS: LACTULOSE 20 GM/30 ML UDCUP PO SCH ×2 (15:19→20:59)
[2019-01-24 17:54] LABS: ABG Base Excess 4.7 MMOL/L (-2.5-2.5); ABG HCO3 28.4 MMOL/L (20-26); ABG Oxygen Saturation 83.2 % (95-100); ABG PO2 52.3 MM HG (80-95); ABG TCO2 34.1 MMOL/L (23-27); Allen Test Positive; Pt O2 Delivery Device BIPAP
[2019-01-24 17:57] LABS: ABG PCO2 95.1 MM HG (35-48); ABG PH 7.187 (7.35-7.45)
[2019-01-24] MEDS: methylPREDNISolone SOD SUC 40 MG/1 ML VIAL IV SCH (20:58)
[2019-01-25 03:04] LABS: Immature Granulocytes % 1.3 %; Immature Granulocytes Absolute 0.06 #; Lymphocytes # 0.2 10*3/uL (1.4-4.0); Lymphocytes % 5.1 % (21.3-54.2); Mean Corpuscular HGB Conc 27.9 GM/DL (32-36); Mean Corpuscular Volume 94.4 FL (87-102); Mean Platelet Volume 13.3 FL (9.6-12.0); Monocytes % 1.3 % (1.7-12.7); NRBC # 0.02 10*3/uL; Neutrophils % 92.3 % (38.7-73.9); Red Blood Count 3.42 MC/CUMM (3.8-5.5); Red Cell Distribution Width 15.7 % (9.3-17.3); White Blood Count 4.7 T/CUMM (4-12)
[2019-01-25 03:06] LABS: Hematocrit 32.3 VOL% (35.7-47.0); Platelet Count 74 T/CUMM (130-400)
[2019-01-25 03:35] LABS: Albumin 2.9 G/DL (3.4-5.0); Bilirubin,Total 0.4 MG/DL (0.2-1.0); Calcium 8.7 MG/DL (8.5-10.1); Osmolality,Calculated 308.4 MOS/KG (273-304); Total Protein 6.1 G/DL (6.4-8.3)
[2019-01-25 04:20] LABS: ABG Base Excess 7.3 MMOL/L (-2.5-2.5); ABG Oxygen Saturation 92.8 % (95-100); ABG PCO2 63.9 MM HG (35-48); ABG PH 7.343 (7.35-7.45); ABG PO2 66.6 MM HG (80-95); ABG TCO2 32.2 MMOL/L (23-27); Allen Test Positive; Pt O2 Delivery Device BIPAP
[2019-01-25] MEDS: methylPREDNISolone SOD SUC 40 MG/1 ML VIAL IV SCH ×3 (04:51→21:40)
[2019-01-25] MEDS: PIPERACILLIN/TAZOBACTAM 3,375 MG in SODIUM CHLORIDE 0.9% 100 ML IV SCH ×3 (04:51→21:49)
[2019-01-25] MEDS: INSULIN LISPRO 100 UNIT/ML SUBCUT SCH ×3 (05:18→18:10)
[2019-01-25] MEDS ORDERED: FUROSEMIDE 40 MG/4 ML VIAL IV ONE (07:13)
[2019-01-25] MEDS: SODIUM CHLORIDE 0.45% 1,000 ML IV SCH ×3 (07:48→17:24)
[2019-01-25] MEDS: PANTOPRAZOLE 40 MG VIAL IV SCH (08:44)
[2019-01-25] MEDS: DILTIAZEM 30 MG TABLET PO SCH (08:45)
[2019-01-25] MEDS: LACTULOSE 20 GM/30 ML UDCUP PO SCH ×3 (08:45→21:48)
[2019-01-25] MEDS: ISOSORBIDE MONONITRATE 30 MG TABLET PO SCH (08:46)
[2019-01-25] MEDS: hydrALAZINE 25 MG TABLET PO SCH ×3 (08:47→21:48)
[2019-01-25] MEDS ORDERED: PANTOPRAZOLE 40 MG TABLET PO SCH (09:00)
[2019-01-25] MEDS ORDERED: DEXTROSE 50% 25 GM/50 ML VIAL IV PRN (09:49)
[2019-01-25] MEDS ORDERED: GLUCAGON 1 MG VIAL IM PRN (09:49)
[2019-01-25] MEDS ORDERED: POTASSIUM CHLORIDE 20 MEQ TABLET PO ONE (10:20)
[2019-01-25] MEDS ORDERED: hydrOXYzine HCL 25 MG TABLET PO PRN (11:41)
[2019-01-25] MEDS: ATORVASTATIN 20 MG TABLET PO SCH (21:48)
[2019-01-25] MEDS: NYSTATIN POWDER 15 GM BOTTLE TOP SCH (21:49)
[2019-01-26] MEDS: INSULIN LISPRO 100 UNIT/ML SUBCUT SCH ×4 (00:28→18:02)
[2019-01-26] MEDS: methylPREDNISolone SOD SUC 40 MG/1 ML VIAL IV SCH ×3 (04:06→21:27)
[2019-01-26] MEDS: PIPERACILLIN/TAZOBACTAM 3,375 MG in SODIUM CHLORIDE 0.9% 100 ML IV SCH ×3 (05:15→21:28)
[2019-01-26] MEDS: LEVOTHYROXINE 100 MCG TABLET PO SCH (06:27)
[2019-01-26] MEDS ORDERED: FUROSEMIDE 40 MG/4 ML VIAL IV ONE (08:09)
[2019-01-26] MEDS: LACTULOSE 20 GM/30 ML UDCUP PO SCH ×4 (08:51→21:27)
[2019-01-26] MEDS: hydrALAZINE 25 MG TABLET PO SCH ×3 (08:51→21:27)
[2019-01-26] MEDS: DILTIAZEM 30 MG TABLET PO SCH (08:51)
[2019-01-26] MEDS: ASPIRIN CHEW 81 MG TABLET PO SCH (08:51)
[2019-01-26] MEDS: DOCUSATE SODIUM 100 MG CAPSULE PO SCH (08:54)
[2019-01-26] MEDS: POLYETHYLENE GLYCOL POWDER 17 GM PACK PO SCH (08:54)
[2019-01-26] MEDS: ISOSORBIDE MONONITRATE 30 MG TABLET PO SCH (09:03)
[2019-01-26] MEDS: NYSTATIN POWDER 15 GM BOTTLE TOP SCH ×2 (09:03→21:29)
[2019-01-26] MEDS: MONTELUKAST 10 MG TABLET PO SCH (09:03)
[2019-01-26] MEDS: LINACLOTIDE 145 MCG CAPSULE PO SCH (09:03)
[2019-01-26] MEDS: PANTOPRAZOLE 40 MG VIAL IV SCH (09:03)
[2019-01-26] MEDS: DULoxetine 30 MG CAPSULE PO SCH (09:03)
[2019-01-26] MEDS: INSULIN GLARGINE 100 UNIT/ML SUBCUT SCH (09:04)
[2019-01-26] MEDS: LEVOFLOXACIN INJ 750 MG in PREMIX 1 EACH IV SCH (11:27)
[2019-01-26] MEDS: SODIUM CHLORIDE 0.45% 1,000 ML IV SCH (18:02)
[2019-01-26] MEDS: ATORVASTATIN 20 MG TABLET PO SCH (21:27)
[2019-01-26] MEDS: ACETAMINOPHEN 325 MG TABLET PO PRN (23:36)
[2019-01-27] MEDS: INSULIN LISPRO 100 UNIT/ML SUBCUT SCH ×3 (00:14→13:21)
[2019-01-27] MEDS: methylPREDNISolone SOD SUC 40 MG/1 ML VIAL IV SCH ×2 (04:28→11:06)
[2019-01-27 04:59] LABS: Osmolality,Calculated 315.8 MOS/KG (273-304)
[2019-01-27 05:02] LABS: Hematocrit 32.3 VOL% (35.7-47.0); Hemoglobin 9.6 GM/DL (12.0-16.0); Immature Granulocytes % 0.6 %; Immature Granulocytes Absolute 0.03 #; Lymphocytes # 0.3 10*3/uL (1.4-4.0); Lymphocytes % 6.1 % (21.3-54.2); Mean Corpuscular HGB Conc 29.7 GM/DL (32-36); Monocytes % 6.8 % (1.7-12.7); NRBC # 0.02 10*3/uL; Neutrophils % 86.5 % (38.7-73.9); Platelet Count 100 T/CUMM (130-400); Red Blood Count 3.63 MC/CUMM (3.8-5.5); Red Cell Distribution Width 16.3 % (9.3-17.3); White Blood Count 4.7 T/CUMM (4-12)
[2019-01-27] MEDS: PIPERACILLIN/TAZOBACTAM 3,375 MG in SODIUM CHLORIDE 0.9% 100 ML IV SCH ×2 (05:12→14:34)
[2019-01-27 05:35] LABS: Anisocytosis 1+; Microcytosis Slight
[2019-01-27 05:36] LABS: Hypochromasia Slight; Platelet Estimate Adequate; Tear Drop Cells Slight
[2019-01-27] MEDS: ASPIRIN CHEW 81 MG TABLET PO SCH (10:44)
[2019-01-27] MEDS: DILTIAZEM 30 MG TABLET PO SCH (10:44)
[2019-01-27] MEDS: LEVOTHYROXINE 100 MCG TABLET PO SCH (10:44)
[2019-01-27] MEDS: hydrALAZINE 25 MG TABLET PO SCH ×2 (10:44→15:20)
[2019-01-27] MEDS: DOCUSATE SODIUM 100 MG CAPSULE PO SCH (10:46)
[2019-01-27] MEDS: DULoxetine 30 MG CAPSULE PO SCH (10:46)
[2019-01-27] MEDS: LACTULOSE 20 GM/30 ML UDCUP PO SCH ×3 (10:46→15:18)
[2019-01-27] MEDS: ISOSORBIDE MONONITRATE 30 MG TABLET PO SCH (10:47)
[2019-01-27] MEDS: INSULIN GLARGINE 100 UNIT/ML SUBCUT SCH (10:47)
[2019-01-27] MEDS: POLYETHYLENE GLYCOL POWDER 17 GM PACK PO SCH (10:51)
[2019-01-27] MEDS: LINACLOTIDE 145 MCG CAPSULE PO SCH (10:51)
[2019-01-27] MEDS: MONTELUKAST 10 MG TABLET PO SCH (10:51)
[2019-01-27] MEDS: PANTOPRAZOLE 40 MG VIAL IV SCH (11:04)
[2019-01-27] MEDS: ACETAMINOPHEN 325 MG TABLET PO PRN (11:12)
[2019-01-27] MEDS: NYSTATIN POWDER 15 GM BOTTLE TOP SCH (14:34)
[2019-01-27 16:01] VITALS: BP 175/83
== END 2019-01-27 18:28 | DRG 871 ==
LOC: N.ICU 09:34 → SUATTDRO 09:34 → N.TELES 01-26 20:25
PROVIDERS: ADMIT Internal Medicine; ATTEND Internal Medicine

== ENCOUNTER 2019-03-15 16:33 | Inpatient (IN) ==
[2019-03-15] MEDS ORDERED: SODIUM CHLORIDE 0.9% 1,000 ML IV STA (17:04)
[2019-03-15 18:02] LABS: Basophils % 0.3 % (0.0-0.8); Eosinophils % 0.4 % (0.00-10.9); Hematocrit 31.5 VOL% (35.7-47.0); Hemoglobin 8.6 GM/DL (12.0-16.0); Immature Granulocytes % 0.8 %; Immature Granulocytes Absolute 0.08 #; Lymphocytes # 1.3 10*3/uL (1.4-4.0); Lymphocytes % 12.3 % (21.3-54.2); Mean Corpuscular HGB Conc 27.3 GM/DL (32-36); Mean Corpuscular Volume 94.9 FL (87-102); Mean Platelet Volume 13.8 FL (9.6-12.0); Monocytes % 8.8 % (1.7-12.7); NRBC # 0.08 10*3/uL; Neutrophils % 77.4 % (38.7-73.9); Platelet Count 133 T/CUMM (130-400); Red Blood Count 3.32 MC/CUMM (3.8-5.5); Red Cell Distribution Width 18.2 % (9.3-17.3); White Blood Count 10.5 T/CUMM (4-12)
[2019-03-15 18:28] LABS: INR 1.1; PT Patient Result 11.6 SECS; Partial Thromboplastin Time 27.1 SECS (0-40)
[2019-03-15 18:34] LABS: Alanine Aminotransferase < 9 U/L (13-56); Albumin 3.1 G/DL (3.4-5.0); Alkaline Phosphatase 98 U/L (45-117); Aspartate Amino Transferase 9 U/L (0-37); Bilirubin,Total < 0.39 MG/DL (0.2-1.0); Blood Urea Nitrogen 72 MG/DL (7-18); Calcium 8.4 MG/DL (8.5-10.1); Glucose 198 MG/DL (74-106); Total Protein 6.5 G/DL (6.4-8.3)
[2019-03-15 19:16] LABS: Apearance,Urine CLOUDY (Clear); Bacteria,Urine Occasional /HPF (Few); Bilirubin,Urine Negative (Negative); Blood, Urine Negative (Negative); Glucose,Urine (UA) Negative (Negative); Ketones,Urine Negative (Negative); Mucus,Urine Occasional /LPF (Occasional); Nitrite,Urine Negative (Negative); Protein,Urine Negative; RBC,Urine 1 /HPF (0-4); Squamous Epithelial Cell,Urine Few /HPF (0-10); Urine Color Yellow (Yellow); Urine Specific Gravity 1.013 (1.001-1.035); Urine Urobilinogen < 2.0 EU/DL (0.2-1.0); WBC,Urine 1 /HPF (0-6)
[2019-03-15 19:33] LABS: Barbiturates Screen,Urine Negative (Negative); Benzodiazepines Screen,Urine Negative (Negative); Cannabinoid Screen,Urine Negative (Negative); Opiate Screen,Urine Negative (Negative); Phencyclidine Screen,Urine Negative (Negative)
[2019-03-15 20:15] LABS: Macrocytosis 1+; Microcytosis 2+; Polychromasia 1+; Stomatocytes Few
[2019-03-15 20:16] LABS: Giant Platelets Few; Ovalocytes 1+; Platelet Estimate Adequate
[2019-03-15] MEDS ORDERED: ONDANSETRON 4 MG/2 ML VIAL IV PRN (20:16)
[2019-03-15] MEDS ORDERED: VANCOMYCIN INJ 2,500 MG in SODIUM CHLORIDE 0.9% 500 ML IV PRN (21:30)
[2019-03-15] MEDS: MEROPENEM 1,000 MG in SODIUM CHLORIDE 0.9% 100 ML IV SCH (21:59)
[2019-03-15] MEDS ORDERED: HALOPERIDOL 5 MG/ML AMP IV ONE (22:26)
[2019-03-15] MEDS ORDERED: VANCOMYCIN INJ 2,500 MG in SODIUM CHLORIDE 0.9% 500 ML IV ONE (23:00)
[2019-03-16 06:02] LABS: Calcium 8.8 MG/DL (8.5-10.1)
[2019-03-16] MEDS: MEROPENEM 1,000 MG in SODIUM CHLORIDE 0.9% 100 ML IV SCH (09:22)
[2019-03-16] MEDS ORDERED: ASPIRIN CHEW 81 MG TABLET PO ONE ×2 (09:26→10:00)
[2019-03-16] MEDS ORDERED: NITROGLYCERIN SL 0.4 MG TABLET SL ONE (09:26)
[2019-03-16] MEDS ORDERED: CLORAZEPATE 3.75 MG TABLET ONE (09:30)
[2019-03-16] MEDS ORDERED: FUROSEMIDE 40 MG/4 ML VIAL IV ONE (09:37)
[2019-03-16] MEDS ORDERED: PROMETHAZINE 25 MG/1 ML VIAL IM PRN (09:38)
[2019-03-16] MEDS ORDERED: CLORAZEPATE 3.75 MG TABLET PO ONE (10:00)
[2019-03-16 12:54] LABS: ABG Base Excess 6.3 MMOL/L (-2.5-2.5); ABG HCO3 30.1 MMOL/L (20-26); ABG Oxygen Saturation 91.4 % (95-100); ABG PH 7.354 (7.35-7.45); ABG TCO2 30.8 MMOL/L (23-27); Allen Test Positive
[2019-03-16 13:51] LABS: Apearance,Urine CLOUDY (Clear); Bilirubin,Urine Negative (Negative); Blood, Urine Negative (Negative); Glucose,Urine (UA) Negative (Negative); Ketones,Urine 5 mg/dL (Negative); Nitrite,Urine Negative (Negative); Protein,Urine Negative; RBC,Urine 1 /HPF (0-4); Squamous Epithelial Cell,Urine Occasional /HPF (0-10); Urine Color Yellow (Yellow); Urine Urobilinogen < 2.0 EU/DL (0.2-1.0); WBC,Urine 2 /HPF (0-6)
[2019-03-16] MEDS: CLORAZEPATE 3.75 MG TABLET PO PRN ×2 (14:47→23:18)
[2019-03-16] MEDS ORDERED: ACETAMINOPHEN 325 MG TABLET PO PRN (17:21)
[2019-03-16] MEDS: traMADol 50 MG TABLET PO PRN (20:55)
[2019-03-16] MEDS ORDERED: GABAPENTIN 300 MG CAPSULE PO SCH (21:00)
[2019-03-16] MEDS: METOPROLOL TARTRATE 25 MG TABLET PO SCH (21:17)
[2019-03-17] MEDS ORDERED: ALBUTEROL 2.5 MG/3 ML NEB RESP TX ONE (01:58)
[2019-03-17] MEDS ORDERED: methylPREDNISolone SOD SUC 125 MG/2 ML VIAL IV ONE (01:59)
[2019-03-17] MEDS ORDERED: methylPREDNISolone SOD SUC 125 MG/2 ML VIAL ONE (01:59)
[2019-03-17 05:03] LABS: Osmolality,Calculated 310.8 MOS/KG (273-304)
[2019-03-17 05:52] LABS: Basophils % 0.3 % (0.0-0.8); Eosinophils % 0.3 % (0.00-10.9); Hematocrit 33.5 VOL% (35.7-47.0); Hemoglobin 9.2 GM/DL (12.0-16.0); Immature Granulocytes % 1.1 %; Immature Granulocytes Absolute 0.13 #; Lymphocytes # 0.8 10*3/uL (1.4-4.0); Lymphocytes % 6.7 % (21.3-54.2); Mean Corpuscular HGB Conc 27.5 GM/DL (32-36); Mean Corpuscular Volume 93.6 FL (87-102); Mean Platelet Volume 13.8 FL (9.6-12.0); Monocytes % 4.2 % (1.7-12.7); NRBC # 0.06 10*3/uL; Neutrophils % 87.4 % (38.7-73.9); Platelet Count 128 T/CUMM (130-400); Red Blood Count 3.58 MC/CUMM (3.8-5.5); Red Cell Distribution Width 18.1 % (9.3-17.3); White Blood Count 11.5 T/CUMM (4-12)
[2019-03-17 06:45] LABS: Anisocytosis 1+; Hypochromasia 2+; Macrocytosis Slight
[2019-03-17 06:46] LABS: Ovalocytes Slight; Platelet Estimate Adequate; Polychromasia Slight; Tear Drop Cells Slight
[2019-03-17] MEDS: METOPROLOL TARTRATE 25 MG TABLET PO SCH ×2 (08:57→20:56)
[2019-03-17] MEDS: POLYETHYLENE GLYCOL POWDER 17 GM PACK PO SCH (08:57)
[2019-03-17] MEDS ORDERED: ASPIRIN CHEW 81 MG TABLET PO SCH (09:00)
[2019-03-17] MEDS ORDERED: ATORVASTATIN 20 MG TABLET PO SCH (09:00)
[2019-03-17] MEDS ORDERED: PANTOPRAZOLE 40 MG TABLET PO SCH (09:00)
[2019-03-17] MEDS ORDERED: DULoxetine 30 MG CAPSULE PO SCH (09:00)
[2019-03-17] MEDS ORDERED: ISOSORBIDE MONONITRATE 30 MG TABLET PO SCH (09:00)
[2019-03-17] MEDS: FUROSEMIDE 40 MG/4 ML VIAL IV SCH ×2 (10:59→17:56)
[2019-03-17] MEDS: traMADol 50 MG TABLET PO PRN (14:11)
[2019-03-17] MEDS: INSULIN LISPRO 100 UNIT/ML SUBCUT SCH (20:53)
[2019-03-17] MEDS: CLORAZEPATE 3.75 MG TABLET PO PRN (20:56)
[2019-03-17] MEDS ORDERED: INSULIN GLARGINE 100 UNIT/ML SUBCUT SCH (21:00)
[2019-03-18 01:19] LABS: ABG Base Excess 4.2 MMOL/L (-2.5-2.5); ABG HCO3 28.1 MMOL/L (20-26); ABG Oxygen Saturation 88.5 % (95-100); ABG PO2 70.1 MM HG (80-95); ABG TCO2 34.7 MMOL/L (23-27); Allen Test Positive; Pt O2 Delivery Device BIPAP
[2019-03-18 01:23] LABS: ABG PH 7.149 (7.35-7.45)
[2019-03-18] MEDS ORDERED: SODIUM BICARBONATE 50 MEQ/50 ML VIAL IV ONE (01:45)
[2019-03-18 04:34] LABS: Calcium 8.6 MG/DL (8.5-10.1); Osmolality,Calculated 312.8 MOS/KG (273-304)
[2019-03-18 05:25] LABS: Allen Test Positive; Pt O2 Delivery Device BIPAP
[2019-03-18 06:01] LABS: ABG Base Excess 3.9 MMOL/L (-2.5-2.5); ABG HCO3 27.5 MMOL/L (20-26); ABG Oxygen Saturation 71.5 % (95-100); ABG PO2 48.1 MM HG (80-95); ABG TCO2 35.4 MMOL/L (23-27)
[2019-03-18] MEDS ORDERED: ETOMIDATE 20 MG/10 ML VIAL IV ONE ×2 (06:25→06:55)
[2019-03-18] MEDS ORDERED: VECURONIUM 10 MG VIAL IV ONE ×2 (06:25→06:56)
[2019-03-18] MEDS ORDERED: MIDAZOLAM 2 MG/2 ML VIAL ONE (07:01)
[2019-03-18] MEDS ORDERED: PROPOFOL 1,000 MG/100 ML BOTTLE IV ONE (07:10)
[2019-03-18] MEDS: PROPOFOL 1,000 MG/100 ML BOTTLE IV SCH ×4 (07:20→18:30)
[2019-03-18] MEDS ORDERED: NITROGLYCERIN DRIP 50 MG/250 ML BOTTLE IV PRN (08:01)
[2019-03-18] MEDS ORDERED: CLORAZEPATE 3.75 MG TABLET PER TUBE PRN (08:05)
[2019-03-18] MEDS ORDERED: METOPROLOL TARTRATE 25 MG TABLET PER TUBE SCH (08:05)
[2019-03-18 08:20] LABS: INR 1.2; PT Patient Result 12.8 SECS; Partial Thromboplastin Time 23.3 SECS (0-40)
[2019-03-18] MEDS ORDERED: METOPROLOL TARTRATE 50 MG TABLET PER TUBE SCH (08:25)
[2019-03-18] MEDS ORDERED: DEXTROSE 50% 25 GM/50 ML VIAL IV PRN (08:26)
[2019-03-18] MEDS ORDERED: GLUCAGON 1 MG VIAL IM PRN (08:26)
[2019-03-18 08:35] LABS: Basophils % 0.3 % (0.0-0.8); Eosinophils % 0.1 % (0.00-10.9); Hematocrit 31.4 VOL% (35.7-47.0); Immature Granulocytes % 1.6 %; Immature Granulocytes Absolute 0.14 #; Lymphocytes % 11.6 % (21.3-54.2); Mean Corpuscular HGB Conc 27.1 GM/DL (32-36); Mean Corpuscular Volume 94.6 FL (87-102); Monocytes % 10.9 % (1.7-12.7); NRBC # 0.08 10*3/uL; Neutrophils % 75.5 % (38.7-73.9); Platelet Count 128 T/CUMM (130-400); Red Blood Count 3.32 MC/CUMM (3.8-5.5); Red Cell Distribution Width 17.7 % (9.3-17.3); White Blood Count 8.9 T/CUMM (4-12)
[2019-03-18 08:36] LABS: Hemoglobin 8.5 GM/DL (12.0-16.0)
[2019-03-18 08:37] LABS: Alanine Aminotransferase 11 U/L (13-56); Albumin 3.3 G/DL (3.4-5.0); Alkaline Phosphatase 86 U/L (45-117); Aspartate Amino Transferase 22 U/L (0-37); Bilirubin,Total < 0.39 MG/DL (0.2-1.0); Blood Urea Nitrogen 69 MG/DL (7-18); Calcium 8.8 MG/DL (8.5-10.1); Glucose 250 MG/DL (74-106); Osmolality,Calculated 313.8 MOS/KG (273-304); Total Protein 6.6 G/DL (6.4-8.3)
[2019-03-18] MEDS ORDERED: MAGNESIUM SULF RIDER 2 GM in PREMIX 1 EACH IV ONE (08:39)
[2019-03-18] MEDS ORDERED: FUROSEMIDE 40 MG/4 ML VIAL IV SCH (08:41)
[2019-03-18] MEDS ORDERED: INSULIN GLARGINE 100 UNIT/ML SUBCUT SCH (08:41)
[2019-03-18] MEDS: fentaNYL INJ 1,250 MCG in SODIUM CHLORIDE 0.9% 225 ML IV PRN ×2 (08:50→20:46)
[2019-03-18] MEDS ORDERED: cloNIDine 0.3 MG/24 HR PATCH TRANSDERM SCH (09:00)
[2019-03-18 09:24] LABS: ABG HCO3 31.8 MMOL/L (20-26); ABG Oxygen Saturation 98.7 % (95-100); ABG PH 7.414 (7.35-7.45); ABG PO2 99.8 MM HG (80-95); ABG TCO2 31.4 MMOL/L (23-27); Allen Test Positive; Pt O2 Delivery Device Ventilator
[2019-03-18 09:37] LABS: Hypochromasia 1+; Microcytosis 1+
[2019-03-18 09:38] LABS: Ovalocytes Few; Platelet Estimate Adequate; Target Cells Slight
[2019-03-18] MEDS: MEROPENEM 1,000 MG in SODIUM CHLORIDE 0.9% 100 ML IV SCH ×2 (11:50→17:40)
[2019-03-18] MEDS: LACTATED RINGERS 1,000 ML IV SCH ×2 (12:03→12:10)
[2019-03-18] MEDS: LEVOFLOXACIN INJ 750 MG in PREMIX 1 EACH IV SCH (12:07)
[2019-03-18] MEDS: FUROSEMIDE 40 MG/4 ML VIAL IV SCH ×3 (12:08→21:31)
[2019-03-18] MEDS: FAMOTIDINE 20 MG/2 ML VIAL IV SCH ×2 (12:11→21:28)
[2019-03-18] MEDS: ENOXAPARIN 40 MG/0.4 ML SYRINGE SUBCUT SCH (12:15)
[2019-03-18] MEDS: INSULIN LISPRO 100 UNIT/ML SUBCUT SCH ×5 (12:16→20:44)
[2019-03-18] MEDS: metOLazone 5 MG TABLET PER TUBE SCH (12:17)
[2019-03-18] MEDS: ATORVASTATIN 20 MG TABLET PER TUBE SCH (12:17)
[2019-03-18] MEDS: POLYETHYLENE GLYCOL POWDER 17 GM PACK PO SCH (12:22)
[2019-03-18] MEDS: LINEZOLID INJ 600 MG in PREMIX 1 EACH IV SCH ×2 (12:25→21:35)
[2019-03-18] MEDS ORDERED: DOPamine 800 MG/250 ML PREMIX IV PRN (15:24)
[2019-03-19] MEDS: INSULIN LISPRO 100 UNIT/ML SUBCUT SCH ×4 (00:54→18:38)
[2019-03-19] MEDS: MEROPENEM 1,000 MG in SODIUM CHLORIDE 0.9% 100 ML IV SCH ×2 (01:40→09:34)
[2019-03-19] MEDS: PROPOFOL 1,000 MG/100 ML BOTTLE IV SCH ×3 (01:40→16:56)
[2019-03-19 03:43] LABS: ABG Base Excess 11.3 MMOL/L (-2.5-2.5); ABG HCO3 34.3 MMOL/L (20-26); ABG Oxygen Saturation 96.8 % (95-100); ABG PCO2 38.7 MM HG (35-48); ABG PH 7.566 (7.35-7.45); ABG PO2 87.7 MM HG (80-95); ABG TCO2 35.5 MMOL/L (23-27); Allen Test Positive; Pt O2 Delivery Device Ventilator
[2019-03-19 03:57] LABS: Basophils % 0.3 % (0.0-0.8); Eosinophils # 0.1 10*3/uL (0.0-0.87); Eosinophils % 0.8 % (0.00-10.9); Hematocrit 29.8 VOL% (35.7-47.0); Hemoglobin 8.6 GM/DL (12.0-16.0); Immature Granulocytes % 0.5 %; Immature Granulocytes Absolute 0.05 #; Lymphocytes # 1.3 10*3/uL (1.4-4.0); Mean Corpuscular HGB Conc 28.9 GM/DL (32-36); Mean Corpuscular Volume 90.3 FL (87-102); Monocytes % 13.1 % (1.7-12.7); Neutrophils % 71.3 % (38.7-73.9); Platelet Count 128 T/CUMM (130-400); Red Cell Distribution Width 18.2 % (9.3-17.3); White Blood Count 9.5 T/CUMM (4-12)
[2019-03-19 04:13] LABS: Calcium 8.8 MG/DL (8.5-10.1); Osmolality,Calculated 307.8 MOS/KG (273-304)
[2019-03-19 04:36] LABS: Troponin I 0.073 NG/ML (0.00-0.045)
[2019-03-19] MEDS: LEVOTHYROXINE 100 MCG TABLET PER TUBE SCH (05:52)
[2019-03-19] MEDS ORDERED: POLYETHYLENE GLYCOL POWDER 17 GM PACK PO PRN (08:43)
[2019-03-19] MEDS ORDERED: INSULIN GLARGINE 100 UNIT/ML SUBCUT SCH (08:44)
[2019-03-19] MEDS: LACTATED RINGERS 1,000 ML IV SCH (08:52)
[2019-03-19] MEDS: fentaNYL INJ 1,250 MCG in SODIUM CHLORIDE 0.9% 225 ML IV PRN ×2 (08:52→21:15)
[2019-03-19] MEDS: metOLazone 5 MG TABLET PER TUBE SCH (09:30)
[2019-03-19] MEDS: ATORVASTATIN 20 MG TABLET PER TUBE SCH (09:30)
[2019-03-19] MEDS: LINEZOLID INJ 600 MG in PREMIX 1 EACH IV SCH ×2 (09:35→21:12)
[2019-03-19] MEDS: ENOXAPARIN 40 MG/0.4 ML SYRINGE SUBCUT SCH (09:36)
[2019-03-19] MEDS: FAMOTIDINE 20 MG/2 ML VIAL IV SCH ×2 (09:37→21:10)
[2019-03-19] MEDS: FUROSEMIDE 40 MG/4 ML VIAL IV SCH ×2 (09:38→21:07)
[2019-03-19 10:58] LABS: ABG Base Excess 10.9 MMOL/L (-2.5-2.5); ABG HCO3 34.7 MMOL/L (20-26); ABG Oxygen Saturation 99.5 % (95-100); ABG PCO2 49.9 MM HG (35-48); ABG PH 7.467 (7.35-7.45); ABG TCO2 33.6 MMOL/L (23-27); Pt O2 Delivery Device Ventilator
[2019-03-19] MEDS: ALBUTEROL/IPRATROPIUM 3 ML NEB RESP TX SCH ×2 (13:01→19:18)
[2019-03-19] MEDS: BUDESONIDE 0.5 MG/2 ML NEB RESP TX SCH ×2 (13:01→19:20)
[2019-03-19] MEDS ORDERED: ENOXAPARIN 30 MG/0.3 ML SYRINGE SUBCUT SCH (14:38)
[2019-03-19] MEDS: cefTRIAXone 1,000 MG in SYRINGE 1 EACH IV SCH (16:20)
[2019-03-19] MEDS: INSULIN GLARGINE 100 UNIT/ML SUBCUT SCH (21:09)
[2019-03-20] MEDS: ALBUTEROL/IPRATROPIUM 3 ML NEB RESP TX SCH ×4 (00:56→19:11)
[2019-03-20] MEDS: INSULIN LISPRO 100 UNIT/ML SUBCUT SCH ×4 (01:09→18:20)
[2019-03-20] MEDS: PROPOFOL 1,000 MG/100 ML BOTTLE IV SCH ×3 (01:09→20:14)
[2019-03-20 03:56] LABS: ABG HCO3 33.7 MMOL/L (20-26); ABG Oxygen Saturation 97.3 % (95-100); ABG PCO2 67.2 MM HG (35-48); ABG PH 7.357 (7.35-7.45); ABG PO2 94.3 MM HG (80-95); ABG TCO2 34.8 MMOL/L (23-27); Allen Test Positive; Pt O2 Delivery Device Ventilator
[2019-03-20 05:15] LABS: Basophils % 0.4 % (0.0-0.8); Eosinophils # 0.2 10*3/uL (0.0-0.87); Hematocrit 28.5 VOL% (35.7-47.0); Hemoglobin 8.2 GM/DL (12.0-16.0); Immature Granulocytes % 0.5 %; Immature Granulocytes Absolute 0.06 #; Lymphocytes # 1.5 10*3/uL (1.4-4.0); Lymphocytes % 13.3 % (21.3-54.2); Mean Corpuscular HGB Conc 28.8 GM/DL (32-36); Mean Corpuscular Volume 91.6 FL (87-102); Mean Platelet Volume 13.5 FL (9.6-12.0); Monocytes % 13.6 % (1.7-12.7); NRBC # 0.03 10*3/uL; Neutrophils % 70.2 % (38.7-73.9); Platelet Count 110 T/CUMM (130-400); Red Blood Count 3.11 MC/CUMM (3.8-5.5); Red Cell Distribution Width 18.6 % (9.3-17.3); White Blood Count 11.2 T/CUMM (4-12)
[2019-03-20] MEDS: LACTATED RINGERS 1,000 ML IV SCH (05:29)
[2019-03-20 05:42] LABS: Troponin I 0.069 NG/ML (0.00-0.045)
[2019-03-20] MEDS: LEVOTHYROXINE 100 MCG TABLET PER TUBE SCH (06:30)
[2019-03-20] MEDS: BUDESONIDE 0.5 MG/2 ML NEB RESP TX SCH ×2 (07:08→19:11)
[2019-03-20] MEDS ORDERED: SODIUM BICARBONATE 50 MEQ/50 ML SYRINGE IV ONE (07:11)
[2019-03-20] MEDS ORDERED: EPINEPHrine 1 MG/10 ML SYRINGE ONE (07:11)
[2019-03-20] MEDS: FAMOTIDINE 20 MG/2 ML VIAL IV SCH ×2 (12:04→20:50)
[2019-03-20] MEDS: FUROSEMIDE 40 MG/4 ML VIAL IV SCH ×2 (12:04→20:51)
[2019-03-20] MEDS: ATORVASTATIN 20 MG TABLET PER TUBE SCH (12:04)
[2019-03-20] MEDS: LINEZOLID INJ 600 MG in PREMIX 1 EACH IV SCH ×2 (12:25→21:32)
[2019-03-20] MEDS: LEVOFLOXACIN INJ 750 MG in PREMIX 1 EACH IV SCH (12:36)
[2019-03-20] MEDS: ASCORBIC ACID 500 MG TABLET PO SCH ×2 (12:36→20:50)
[2019-03-20] MEDS: metOLazone 5 MG TABLET PER TUBE SCH (12:36)
[2019-03-20] MEDS: cefTRIAXone 1,000 MG in SYRINGE 1 EACH IV SCH (16:00)
[2019-03-20] MEDS: APIXABAN 5 MG TABLET PO SCH (20:50)
[2019-03-20] MEDS: INSULIN GLARGINE 100 UNIT/ML SUBCUT SCH (20:51)
[2019-03-20] MEDS: fentaNYL INJ 1,250 MCG in SODIUM CHLORIDE 0.9% 225 ML IV PRN (23:23)
[2019-03-21] MEDS: INSULIN LISPRO 100 UNIT/ML SUBCUT SCH ×6 (00:02→23:27)
[2019-03-21] MEDS: ALBUTEROL/IPRATROPIUM 3 ML NEB RESP TX SCH ×4 (00:34→19:47)
[2019-03-21] MEDS: PROPOFOL 1,000 MG/100 ML BOTTLE IV SCH ×2 (00:58→06:36)
[2019-03-21] MEDS: LACTATED RINGERS 1,000 ML IV SCH ×2 (02:41→23:28)
[2019-03-21 03:38] LABS: Calcium 8.6 MG/DL (8.5-10.1); Osmolality,Calculated 303.3 MOS/KG (273-304)
[2019-03-21 03:49] LABS: Basophils % 0.2 % (0.0-0.8); Eosinophils # 0.3 10*3/uL (0.0-0.87); Eosinophils % 3.7 % (0.00-10.9); Hemoglobin 7.7 GM/DL (12.0-16.0); Immature Granulocytes % 0.6 %; Immature Granulocytes Absolute 0.05 #; Lymphocytes # 1.1 10*3/uL (1.4-4.0); Lymphocytes % 12.6 % (21.3-54.2); Mean Corpuscular HGB Conc 28.3 GM/DL (32-36); Mean Corpuscular Volume 91.9 FL (87-102); Monocytes % 10.9 % (1.7-12.7); NRBC # 0.02 10*3/uL; Platelet Count 101 T/CUMM (130-400); Red Blood Count 2.96 MC/CUMM (3.8-5.5); Red Cell Distribution Width 18.4 % (9.3-17.3); White Blood Count 8.9 T/CUMM (4-12)
[2019-03-21 03:54] LABS: Hematocrit 27.2 VOL% (35.7-47.0)
[2019-03-21 04:09] LABS: Allen Test Positive; Pt O2 Delivery Device Ventilator
[2019-03-21 04:21] LABS: Hypochromasia Slight; Platelet Estimate Decreased; Polychromasia Few
[2019-03-21 04:41] LABS: ABG Base Excess 11.5 MMOL/L (-2.5-2.5); ABG HCO3 35.3 MMOL/L (20-26); ABG Oxygen Saturation 99.5 % (95-100); ABG PH 7.359 (7.35-7.45); ABG TCO2 36.6 MMOL/L (23-27)
[2019-03-21 05:32] LABS: ABG PCO2 69.2 MM HG (35-48)
[2019-03-21] MEDS: LEVOTHYROXINE 100 MCG TABLET PER TUBE SCH (06:42)
[2019-03-21] MEDS: BUDESONIDE 0.5 MG/2 ML NEB RESP TX SCH ×2 (07:36→19:47)
[2019-03-21] MEDS: FAMOTIDINE 20 MG/2 ML VIAL IV SCH ×2 (08:57→20:36)
[2019-03-21] MEDS: FUROSEMIDE 40 MG/4 ML VIAL IV SCH ×2 (09:04→20:31)
[2019-03-21] MEDS: LINEZOLID INJ 600 MG in PREMIX 1 EACH IV SCH ×2 (09:09→21:00)
[2019-03-21] MEDS: ATORVASTATIN 20 MG TABLET PER TUBE SCH (09:16)
[2019-03-21] MEDS: metOLazone 5 MG TABLET PER TUBE SCH (09:16)
[2019-03-21] MEDS: APIXABAN 5 MG TABLET PO SCH ×2 (09:17→20:31)
[2019-03-21] MEDS: ASCORBIC ACID 500 MG TABLET PO SCH ×2 (09:17→20:43)
[2019-03-21] MEDS: fentaNYL INJ 1,250 MCG in SODIUM CHLORIDE 0.9% 225 ML IV PRN (11:38)
[2019-03-21] MEDS: cefTRIAXone 1,000 MG in SYRINGE 1 EACH IV SCH (15:15)
[2019-03-21] MEDS: INSULIN GLARGINE 100 UNIT/ML SUBCUT SCH (20:36)
[2019-03-22] MEDS: PROPOFOL 1,000 MG/100 ML BOTTLE IV SCH ×2 (01:07→09:57)
[2019-03-22] MEDS: ALBUTEROL/IPRATROPIUM 3 ML NEB RESP TX SCH ×3 (01:47→12:09)
[2019-03-22] MEDS: fentaNYL INJ 1,250 MCG in SODIUM CHLORIDE 0.9% 225 ML IV PRN ×2 (02:19→09:27)
[2019-03-22 05:01] LABS: ABG Base Excess 10.6 MMOL/L (-2.5-2.5); ABG HCO3 34.4 MMOL/L (20-26); ABG Oxygen Saturation 98.1 % (95-100); ABG PH 7.327 (7.35-7.45); ABG TCO2 36.5 MMOL/L (23-27); Allen Test Positive; Pt O2 Delivery Device Ventilator
[2019-03-22 05:02] LABS: ABG PCO2 74.2 MM HG (35-48)
[2019-03-22 05:07] LABS: Prealbumin 11.7 MG/DL (20-40)
[2019-03-22] MEDS: INSULIN LISPRO 100 UNIT/ML SUBCUT SCH ×2 (06:46→12:55)
[2019-03-22] MEDS: LEVOTHYROXINE 100 MCG TABLET PER TUBE SCH (06:46)
[2019-03-22] MEDS: BUDESONIDE 0.5 MG/2 ML NEB RESP TX SCH (07:09)
[2019-03-22 07:58] LABS: Calcium 8.7 MG/DL (8.5-10.1); Osmolality,Calculated 295.5 MOS/KG (273-304)
[2019-03-22 08:25] LABS: Basophils % 0.3 % (0.0-0.8); Eosinophils # 0.4 10*3/uL (0.0-0.87); Eosinophils % 3.6 % (0.00-10.9); Hematocrit 26.6 VOL% (35.7-47.0); Hemoglobin 7.5 GM/DL (12.0-16.0); Immature Granulocytes % 0.5 %; Immature Granulocytes Absolute 0.05 #; Lymphocytes # 1.1 10*3/uL (1.4-4.0); Lymphocytes % 11.3 % (21.3-54.2); Mean Corpuscular HGB Conc 28.2 GM/DL (32-36); Mean Corpuscular Volume 91.7 FL (87-102); Neutrophils % 72.3 % (38.7-73.9); Platelet Count 87 T/CUMM (130-400); Red Cell Distribution Width 18.5 % (9.3-17.3)
[2019-03-22 08:27] LABS: Platelet Estimate Decreased
[2019-03-22 08:28] LABS: Anisocytosis 1+; Poikilocytosis Slight
[2019-03-22] MEDS: LEVOFLOXACIN INJ 750 MG in PREMIX 1 EACH IV SCH (09:50)
[2019-03-22] MEDS: FAMOTIDINE 20 MG/2 ML VIAL IV SCH (10:02)
[2019-03-22] MEDS: FUROSEMIDE 40 MG/4 ML VIAL IV SCH (10:02)
[2019-03-22] MEDS: ASCORBIC ACID 500 MG TABLET PO SCH (10:03)
[2019-03-22] MEDS: metOLazone 5 MG TABLET PER TUBE SCH (10:03)
[2019-03-22] MEDS: APIXABAN 5 MG TABLET PO SCH (10:03)
[2019-03-22] MEDS: ATORVASTATIN 20 MG TABLET PER TUBE SCH (10:03)
[2019-03-22] MEDS: LINEZOLID INJ 600 MG in PREMIX 1 EACH IV SCH (11:40)
[2019-03-22] MEDS: cefTRIAXone 1,000 MG in SYRINGE 1 EACH IV SCH (13:41)
[2019-03-22 14:27] VITALS: BP 156/66
== END 2019-03-22 15:14 | DRG 291 ==
LOC: EDBD → EDUNIT# → N.2E 16:33 → N.ED 16:33 → N.2E 20:46 → SUATTDRO 03-16 09:42 → N.ICU 03-18 06:30
PROVIDERS: ADMIT Family Medicine; ATTEND Internal Medicine Geriatric Medicine